=== PATIENT | male | born 1990 | race Hispanic/Latino ===

== ENCOUNTER 2021-02-11 14:20 | Emergency (ER) | payer OTHER, SELFPAY ==
--- NOTE | ~2021-02-11 | CT_ITS ---
EXAMINATION: CT brain wo con INDICATION: Generalized headache COMPARISON: 04/03/2019 TECHNIQUE: Standard unenhanced head CT. The dose-length product (DLP) was 605.33 mGy-cm. The mA was a djusted according to patient size. Iterative reconstruction technique was employed. FINDINGS: There is no intracranial hemorrhage, acute infarction, or abnormal mass lesion. The ventric les are normal. There is no abnormal mass effect or midline shift. The walters-white matter differentiat ion is normal. The basal cisterns are patent. The orbits are normal. The paranasal sinuses, mastoids and calvarium are normal. IMPRESSION: 1. No acute intracranial abnormality. Reviewed, dictated and finalized at location A.
--- NOTE | ~2021-02-11 | CT_ITS ---
EXAMINATION: CT abdomen pelvis w con INDICATION: Abdominal pain TECHNIQUE: Computed tomographic images of the abdomen and pelvis were obtained after the administrati on of 100 cc of Omnipaque 350 intravenous contrast. The dose-length product (DLP) was 347.26 mGy-cm. Automated exposure control and iterative reconstruction technique were employed. COMPARISON: None available FINDINGS: Minimal dependent atelectasis is present in the lung bases. The heart size is normal. The l iver, spleen, pancreas, gallbladder, and adrenal glands are normal. The kidneys are unremarkable. No pathologically enlarged abdominal or pelvic lymph nodes are identified. There is no free intraperiton eal gas or evidence of bowel obstruction. The appendix is normal. The bladder is decompressed by Fole y catheter. There is wall thickening of the urinary bladder with surrounding fat stranding. IMPRESSION: 1. CT findings consistent with cystitis. Reviewed, dictated and finalized at location A.
[2021-02-11 14:33] VITALS: BP 103/94; PULSE 96; RESP 14; TEMP 36.7; O2SAT 97
[2021-02-11 15:11] LABS: Basophils Absolute Auto 0.1 K/mm3 (0.0-0.1); Basophils Percent Auto 0.3 % (0.2-1.2); Eosinophils Absolute Auto 0.1 K/mm3 (0-0.3); Eosinophils Percent Auto 0.4 % (0-4.4); Hematocrit 42.7 % (42.0-52.0); Hemoglobin 14.8 g/dL (14.0-18.0); Immature Granulocyte Absolute 0.12 K/mm3 (0.00-0.031); Immature Granulocyte Percent A 0.6 % (0-0.5); Lymphocytes Absolute Auto 1.38 K/mm3 (0.9-3.2); Lymphocytes Percent Auto 6.8 % (18.3-44.2); Mean Corpuscular HGB Conc 34.7 g/dl (32-36); Mean Corpuscular Hemoglobin 30.6 pg (26-34); Mean Corpuscular Volume 88.4 fl (80-100); Mean Platelet Volume 10.6 fl (7.4-10.4); Monocytes Absolute Auto 1.1 K/mm3 (0.1-0.6); Monocytes Percent Auto 5.6 % (2.6-8.5); Neutrophils Absolute Auto 17.5 K/mm3 (1.3-6.7); Neutrophils Percent Auto 86.3 % (45.5-73.1); Platelet Count Result 238 k/mm3 (150-375); Red Blood Count 4.83 M/mm3 (4.6-6.20); Red Cell Distribution Width 13.1 % (11.5-14.5); White Blood Count 20.3 K/mm3 (4.5-10.0)
[2021-02-11 15:21] LABS: Anion Gap 12 mmol/L (8-16); Blood Urea Nitrogen 14 mg/dL (9-20); Calcium 9.4 mg/dL (8.4-10.2); Carbon Dioxide 24 mmol/L (22-30); Chloride 104 mmol/L (98-107); Creatine Kinase 60 U/L (55-170); Estimated CRCL calculation 193 ml/min; Estimated Glomerular Filt Rate > 60; Glucose 107 mg/dL (65-110); Potassium 3.7 mmol/L (3.4-5.0); Sodium 140 mmol/L (137-145)
[2021-02-11] MEDS: SODIUM CHLORIDE 0.9% IV 1,000 ML 999 ML IV CONT (15:57)
[2021-02-11 15:59] VITALS: BP 100/58; PULSE 78; RESP 12; O2SAT 98
[2021-02-11 16:00] VITALS: BP 113/89; PULSE 80; RESP 14; O2SAT 97
[2021-02-11 16:03] LABS: Add Urine Microscopic? YES; Appearance Urine Clear (Clear); Bilirubin Urine Negative (Negative); Blood Urine 3+ (Negative); Color Urine Yellow (Yellow); Glucose Urine UA Negative (Negative); Ketones Urine Negative (Negative); Leukocyte Esterase Ur 2+ LEU/UL (Negative); Nitrate Urine Negative (Negative); Protein Urine 1+ mg/dL (Negative); RBC Urine 51-75 /hpf (0-2); Specific Grav Ur 1.008 (1.001-1.035); Urobilinogen Urine Negative mg/dL (<2.0); WBC Urine 31-50 /hpf
--- NOTE | 2021-02-11 16:09 | ECG_ITS ---
Measurements Intervals [place] Rate: 86 P: 69 OK: 177 QRS: 9 QRSD: 90 T: 58 QT: 321 QTc: 384 Interpretive Statements SINUS RHYTHM BASELINE ARTIFACT- I, II, III, AVR, AVL, AVF, V1-V6 NORMAL ECG Electronically Signed On 02-11-2021 17:44:02 CDT by Juanito Morales D.O.
[2021-02-11] MEDS: LACTATED RINGERS 2,100 ML/1,000 ML BAG 999 ML IV CONT (16:27)
[2021-02-11 16:50] LABS: Lipase 18 U/L (23-300)
[2021-02-11 16:51] LABS: Lactic Acid Reflex 0.8 mmol/L (0.7-2.1)
[2021-02-11 16:53] LABS: CRP 2.1 mg/dL (<1.0)
[2021-02-11 16:56] LABS: INR 1.1; Prothrombin Time 14.3 Seconds (11.1-14.7)
[2021-02-11 16:57] LABS: Partial Thromboplastin Time 29.3 SECONDS (22.3-36.8)
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
[2021-02-11 17:50] VITALS: BP 105/56; PULSE 98; RESP 13; O2SAT 97
[2021-02-11 18:15] VITALS: BP 106/51; PULSE 98; RESP 12; O2SAT 98
--- NOTE | 2021-02-11 18:28 | PC.NURSE ---
2L of IVFs given, 1 bag of NS and 1 bag of LR. ERP cancelled the last additional 1100ml of LR.
[2021-02-11 19:17] VITALS: BP 109/59; PULSE 93; RESP 12; O2SAT 98
--- NOTE | 2021-02-12 15:52 | PC.NURSE ---
tea and [employer] supervisor notified of positive blood cultures for this patient but lab was unable to locate a primary doctor in chart. I attempted to look up contact information but no phone number is listed for the patient. Only [facility] main number. Patient was not notified of positive blood cultures due to lack of contact information.
== END 2021-02-11 19:29 ==
PROVIDERS: Emergency Provider Emergency Medicine
DX: N39.0 Urinary tract infection, site not specified (principal); R51.9 Headache, unspecified; G82.20 Paraplegia, unspecified; S14.105S Unspecified injury at C5 level of cervical spinal cord, sequela; X58.XXXS Exposure to other specified factors, sequela
CPT/HCPCS: 36415; 51702; 70450; 74177; 80048; 81001; 82550; 83605; 83690; 85025; 85610; 85730; 86140; 87040; 87077; 87086; 87088; 87186; 93005; 96361; 96365; 99284; J0696; J7030; J7120; Q9967

== ENCOUNTER 2021-12-18 22:38 | Inpatient (IN) | payer OTHER, SELFPAY ==
--- NOTE | ~2021-12-18 | CT_ITS ---
EXAMINATION: CT abdomen pelvis w con DATE: 12/18/2021 23:52 INDICATION: Abdominal pain. TECHNIQUE: Computed tomography (CT) of the abdomen and pelvis was performed with 100 mL Omnipaque 350 intravenous contrast. Automated exposure control and iterative reconstruction technique were employe d. The dose-length product was 378.18 mGy-cm. COMPARISON: CT abdomen and pelvis 02/11/2021 FINDINGS: The visualized portions of the lung bases demonstrate minimal atelectasis on the left. No p leural effusion. The heart size is normal. No pericardial effusion. The liver demonstrates hypertroph y of left lateral segment and surface nodularity, consistent with cirrhosis. The gallbladder, spleen, pancreas, adrenal glands, and kidneys are normal. The bladder is distended. There is a large volume of stool in the colon. There are no dilated loops of bowel. The appendix is normal. There are no path ologically enlarged lymph nodes. There is no free intraperitoneal fluid. There is chronic fat strandi ng around the sacrococcygeal region with worsened erosions of bone. There is a mass with 1.6 x 1.4 x 1.5 cm central relative hypoattenuation in this area, which may be phlegmon or early abscess. There is mild thoracolumbar spondylosis. IMPRESSION: 1. Sacrococcygeal osteomyelitis with phlegmon versus small early abscess. 2. Large volume of stool in the colon. 3. Distended bladder. 4. Cirrhosis of liver. Reviewed, dictated and finalized at location A.
--- NOTE | ~2021-12-18 | MR_ITS ---
EXAMINATION: MR pelvis wo/w con DATE: 12/21/2021 07:20 INDICATION: Sacral osteomyelitis. TECHNIQUE: Magnetic resonance imaging (MRI) of the pelvis was performed without and with 15 mL MultiH ance intravenous contrast. COMPARISON: CT abdomen and pelvis 12/18/2021, 02/11/21 FINDINGS: There are no dilated loops of bowel. The bladder is compressed by a Fitzpatrick catheter. There is trace pe lvic ascites. There are erosions of S5 segment of the sacrum. There is a small fragment of heterotopi c ossification anterior to the distal sacrum that may be displaced coccyx. There is fat stranding gabino und the distal sacrum with 1.7 x 0.7 x 1.0 cm rim-enhancing fluid collection, consistent with abscess . IMPRESSION: 1. Chronic sacrococcygeal osteomyelitis with small abscess, worsened from 02/11/21. Reviewed, dictated and finalized at location A. IMPRESSION: 1. Chronic sacrococcygeal osteomyelitis with small abscess, worsened from .
[2021-12-18 22:44] VITALS: BP 112/65; PULSE 94; RESP 23; O2SAT 96
[2021-12-18 22:50] VITALS: PULSE 96; RESP 16; O2SAT 95
[2021-12-18 23:08] LABS: Basophils Absolute Auto 0.1 K/mm3 (0.0-0.1); Basophils Percent Auto 0.6 % (0.2-1.2); Eosinophils Percent Auto 0.1 % (0-4.4); Hematocrit 42.8 % (42.0-52.0); Immature Granulocyte Absolute 0.04 K/mm3 (0.00-0.031); Immature Granulocyte Percent A 0.5 % (0-0.5); Lymphocytes Absolute Auto 1.14 K/mm3 (0.9-3.2); Lymphocytes Percent Auto 14.2 % (18.3-44.2); Mean Corpuscular Hemoglobin 29.6 pg (26-34); Mean Corpuscular Volume 84.4 fl (80-100); Mean Platelet Volume 11.5 fl (7.4-10.4); Monocytes Absolute Auto 0.5 K/mm3 (0.1-0.6); Monocytes Percent Auto 6.6 % (2.6-8.5); Neutrophils Absolute Auto 6.3 K/mm3 (1.3-6.7); Platelet Count Result 225 k/mm3 (150-375); Red Blood Count 5.07 M/mm3 (4.6-6.20); Red Cell Distribution Width 14.6 % (11.5-14.5)
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
[2021-12-18] MEDS: HYDROmorphone HCL INJ (*CRX) 1 MG/ML SYR 0.5 MG IV PUSH (23:15)
[2021-12-18] MEDS: SODIUM CHLORIDE 0.9% IV 1,000 ML 999 ML IV CONT (23:15)
[2021-12-18 23:17] LABS: Lactic Acid Reflex 0.9 mmol/L (0.7-2.0)
[2021-12-18 23:23] VITALS: O2SAT 97
[2021-12-18 23:25] LABS: Alanine Aminotransferase 9 U/L (6-50); Albumin Level 4.6 g/dL (3.5-5.1); Alkaline Phosphatase 120 U/L (38-126); Aspartate Amino Transferase 20 U/L (17-59); Blood Urea Nitrogen 10 mg/dL (9-20); Carbon Dioxide < 5 mmol/L (22-30); Chloride 100 mmol/L (98-107); Estimated Glomerular Filt Rate > 60; Glucose 438 mg/dL (65-110); Lipase 169 U/L (23-300); Potassium 2.5 mmol/L (3.4-5.0); Sodium 131 mmol/L (137-145)
[2021-12-18 23:30] VITALS: O2SAT 97
--- NOTE | 2021-12-18 23:44 | PC.NURSE ---
called Estephanie in lab @1171 to add on Phos MG -NC
[2021-12-18 23:50] VITALS: BP 102/73; PULSE 95; RESP 21; TEMP 36.4; O2SAT 100
[2021-12-19] VITALS (23 sets, daily range): BP systolic 92–125; BP diastolic 54–99; PULSE 85–107; RESP 12–28; TEMP 36–36.9; O2SAT 96–99; BMI 27.3
[2021-12-19] MEDS: KCL 20 MEQ/SW 100 ML 100 ML 50 MEQ IVPB (00:04)
[2021-12-19 00:07] LABS: Magnesium 2.2 mg/dL (1.6-2.3); Phosphorus 2.3 mg/dL (2.5-4.5)
[2021-12-19] MEDS: POTASSIUM CHLORIDE 20 MEQ PACKET (FOR LIQUID) 40 MEQ PO ×2 (00:14→02:58)
[2021-12-19 01:27] LABS: Appearance Urine Cloudy (Clear); Bilirubin Urine Negative (Negative); Blood Urine 1+ (Negative); Glucose Urine UA 2+ mg/dL (Negative); Ketones Urine 4+ mg/dL (Negative); Leukocyte Esterase Ur Negative LEU/UL (Negative); Nitrate Urine Negative (Negative); Protein Urine 1+ mg/dL (Negative); Specific Grav Ur 1.015 (1.001-1.035); Urobilinogen Urine 0.2 mg/dL (<2.0); pH Urine 5.5 (5.0-9.0)
[2021-12-19 01:31] LABS: Add Urine Microscopic? YES; Color Urine Light Yellow (Yellow)
[2021-12-19 01:33] LABS: Calcium Oxalate Crystals Urine Present /hpf; RBC Urine >75 /hpf (0-2)
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
--- NOTE | 2021-12-19 02:30 | ECG_ITS ---
Measurements Intervals [place] Rate: 91 P: 48 IA: 147 QRS: -9 QRSD: 90 T: 11 QT: 350 QTc: 432 Interpretive Statements SINUS RHYTHM NONSPECIFIC ST CHANGES, NEW COMPARED TO THE PRIOR TRACING. COMPARED TO ECG 02/11/2021 16:37:07 ST (T WAVE) DEVIATION NOW PRESENT Electronically Signed On 12-19-2021 16:29:33 CDT by Chula Escalante M.D.
[2021-12-19] MEDS: SODIUM CHLORIDE 0.9% IV 1,000 ML 150 ML IV CONT (02:58)
[2021-12-19] MEDS: SODIUM CHLORIDE 0.9% IV 1,000 ML 999 ML IV CONT ×3 (03:14→12:24)
--- NOTE | 2021-12-19 04:12 | ADMGEN ---
This patient, Raman Mccall, was admitted to Intensive Care Unit-7 on 12/19/21 at 0400. Patient/family oriented to hospital policies and general routines including ID bracelet, bed and alarms, visiting hours, pain management, procedures, bathroom and other care routines, personal items, smoking policy, room service/diet, and visiting hours. Information on how to activate the Rapid Response Team has been discussed. Patient/Family are encouraged to report perceived risks to care and to ask questions if they do not understand what they are told or what they should do.
[2021-12-19 04:23] LABS: Glucose Point of Care 366 mg/dl (65-105)
[2021-12-19 04:35] LABS: Blood Urea Nitrogen 7 mg/dL (9-20); Calcium 8.5 mg/dL (8.4-10.2); Carbon Dioxide < 5 mmol/L (22-30); Chloride 109 mmol/L (98-107); Estimated CRCL calculation 146 ml/min; Estimated Glomerular Filt Rate > 60; Glucose 357 mg/dL (65-110); Potassium 3.6 mmol/L (3.4-5.0); Sodium 137 mmol/L (137-145)
[2021-12-19] MEDS: MAGNESIUM HYDROXIDE SUSP 30 ML UDC PO (04:35)
[2021-12-19 04:36] LABS: Prothrombin Time 22.4 Seconds (11.1-14.7)
[2021-12-19 04:41] LABS: Hemoglobin A1C 11.5 % (<5.7)
[2021-12-19 05:22] LABS: Beta-Hydroxybutyrate/Acetoacetate 7.62 mmol/L (0.02-0.27)
[2021-12-19] MEDS: INSULIN HUMAN REGULAR (*BKC) 100 UNITS in SODIUM CHLORIDE 0.9% IV 99 ML 5.02 UNITS IV CONT (06:15)
[2021-12-19 06:22] LABS: Glucose Point of Care 311 mg/dl (65-105)
[2021-12-19 07:19] LABS: Glucose Point of Care 277 mg/dl (65-105)
[2021-12-19 08:01] LABS: Anion Gap 19 mmol/L (8-16); Blood Urea Nitrogen 6 mg/dL (9-20); Calcium 8.2 mg/dL (8.4-10.2); Carbon Dioxide 8 mmol/L (22-30); Chloride 112 mmol/L (98-107); Estimated CRCL calculation 178 ml/min; Estimated Glomerular Filt Rate > 60; Glucose 256 mg/dL (65-110); Potassium 2.8 mmol/L (3.4-5.0); Sodium 139 mmol/L (137-145)
[2021-12-19] MEDS: BISACODYL 10 MG SUPPOSITORY RECTAL (08:23)
[2021-12-19] MEDS: POTASSIUM CHLORIDE INJ 40 MEQ in SODIUM CHLORIDE 0.9% IV 500 ML 130 MEQ IVPB ×2 (08:23→17:41)
[2021-12-19] MEDS: KCL 20 MEQ/D5/0.45% SOD CHL 1,000 ML 150 ML IV CONT ×3 (08:23→22:19)
[2021-12-19] MEDS: ONDANSETRON INJ 4 MG/2 ML VIAL IV PUSH (08:24)
[2021-12-19 08:31] LABS: Glucose Point of Care 207 mg/dl (65-105)
[2021-12-19 09:15] LABS: Glucose Point of Care 198 mg/dl (65-105)
--- NOTE | 2021-12-19 09:20 | PM.IMPN ---
Progress Note: A&P Assessment and Plan (1) DKA (diabetic ketoacidosis): Code(s): E11.10 - Type 2 diabetes mellitus with ketoacidosis without coma Status: Acute Assessment and Plan: Patient presents with n/v and abdominal pain. Glucose 438 with serum bicarb <5 (AG 26). Patient has new onset diabetes mellitus. A1c 11.5. Patient received 3 L of isotonic fluids in the ER. Patient was started on DKA protocol and admitted to ICU. Appreciate collections attorney input. Discussed. (2) Acute hypokalemia: Code(s): E87.6 - Hypokalemia Status: Acute Assessment and Plan: Potassium 2.5 on admission. Not on diuretics on admission. Potassium was replaced with repeat showing normal potassium level. With treatment of the DKA, potassium has dropped again with repeat replacement ordered. Mag level normal. Follow and replace as needed. (3) Constipation due to neurogenic bowel: Code(s): K59.00 - Constipation, unspecified; K59.2 - Neurogenic bowel, not elsewhere classified Status: Acute Assessment and Plan: Patient started on Colace and daily Dulcolax. He did receive an enema in the ER. He is having BMs and abd soft. Continue current bowel regiment and monitor (4) Urinary retention: Code(s): R33.9 - Retention of urine, unspecified Status: Acute Assessment and Plan: Patient had an episode of hematuria but urine clear now. UA does showing 1+ blood with >[address] scan showing urine retnetion so Fitzpatrick catheter was placed. Patient will benefit from intermittent straight catheterization after discharge. A portion of the patient's urinary retention could be related to his constipation as well. Follow up on UCx and BCx results. (5) Acute hyponatremia: Code(s): E87.1 - Hypo-osmolality and hyponatremia Status: Acute Assessment and Plan: Na 131 on admission. [place] related to Pseudo hyponatremia due to hyperglycemia. Na normal now. (6) Abnormal computed tomography of abdomen and pelvis: Code(s): R93.5 - Abnormal findings on diagnostic imaging of other abdominal regions, including retroperitoneum Status: Acute Assessment and Plan: Preliminary CT reading suggested possible proctitis. Official reading showing sacrococcygeal osteomyelitis with phlegmon versus small early abscess, large volume stool, distended bladder and cirrhosis. No mention of ascites. The constipation and urine retention is being addressed as mentioned above. Regarding the possible osteomyelitis, patient has a normal white count and no fevers. Does mention having chills however. Nothing concerning noted on clinical exam. Cultures obtained. Hold off on antibiotics at this time with plans for MRI of this area once able. Regarding the cirrhosis, this is documented the past medical history felt related to alcohol. LFTs are normal. INR is elevated related to the Coumadin. Overall was felt that his cirrhosis is well compensated. (7) Quadriplegia, C5-C7 incomplete: Code(s): G82.54 - Quadriplegia, C5-C7 incomplete Status: Acute Assessment and Plan: Chronic and stable. Some good upper body strength and function. Will continue home Neurontin, diazepam and Skelaxin. Plan DVT Prophylaxis: Coumadin Code status: Full Diet: NPO Subjective Date/time seen: 12/19/21 09:20 Interval history: 31yo male with quadriplegia here for abdominal pain, constipation and hematuria. Patient denies chest pain. He continues to have abdominal pain. He did have a large bowel movement last night. Fitzpatrick catheter secured for urine retention. Urine is clear. Patient is on anticoagulation chronically for unclear reasons. He has had decreased appetite recently with nausea. He has no history of diabetes. He has had polydipsia recently. Exam Narrative: AF 98.2 99/60 88 15 97% ra Gen - NARD lying semi-recumbent in bed Chest - lungs clear anteriorly and in
[2021-12-19] MEDS: ACETAMINOPHEN 325 MG TABLET 650 MG PO (09:23)
[2021-12-19] MEDS: GABAPENTIN 400 MG CAPSULE PO ×3 (09:23→16:53)
[2021-12-19] MEDS: DOCUSATE SODIUM 100 MG CAPSULE PO ×2 (09:23→21:41)
[2021-12-19] MEDS: methocarbamoL 750 MG TABLET PO ×2 (09:23→21:41)
[2021-12-19] MEDS: DULoxetine HCL 60 MG CAPSULE.DR PO (09:23)
[2021-12-19 10:18] LABS: Glucose Point of Care 233 mg/dl (65-105)
[2021-12-19 11:14] LABS: Glucose Point of Care 207 mg/dl (65-105)
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
--- NOTE | 2021-12-19 11:39 | PCFNICU ---
ICU Rounding Note: Pt current nutrition is Clear Liquids. Last recorded weight is 70.2 kg Bowel Motility:No BM reported. Labs Reviewed:Glu 256,K 2.8,BUN 6, Cr 0.4 Meds Noted:Miralax, Colace, Cymbalta,Zofran Skin:WNL Additional Notes: DKA consult. Patient lives at [place]. HbA1c 11.5%, tolerating clear liquid diet. Recommend advancing diet as tolerated to Diabetic Consistent Carb diet. Following daily in ICU rounds.
[2021-12-19 12:22] LABS: Glucose Point of Care 218 mg/dl (65-105)
[2021-12-19 13:30] LABS: Glucose Point of Care 206 mg/dl (65-105)
[2021-12-19] MEDS: polyethylene glycoL 3350 17 GM POWD.PACK PO (13:30)
[2021-12-19] MEDS: EUCERIN CREAM 120 GM JAR 1 APPLIC TOPICAL (13:32)
[2021-12-19 13:37] LABS: Anion Gap 13 mmol/L (8-16); Blood Urea Nitrogen 3 mg/dL (9-20); Calcium 7.9 mg/dL (8.4-10.2); Carbon Dioxide 13 mmol/L (22-30); Chloride 110 mmol/L (98-107); Estimated CRCL calculation 227 ml/min; Estimated Glomerular Filt Rate > 60; Glucose 199 mg/dL (65-110); Potassium 2.6 mmol/L (3.4-5.0); Sodium 136 mmol/L (137-145)
[2021-12-19] MEDS: POTASSIUM CHLORIDE 20 MEQ TABLET 80 MEQ PO (14:00)
[2021-12-19 14:30] LABS: Glucose Point of Care 310 mg/dl (65-105)
[2021-12-19] MEDS: INSULIN HUMAN REGULAR (*BKC) 100 UNITS in SODIUM CHLORIDE 0.9% IV 99 ML 25 UNITS IV CONT (15:04)
[2021-12-19 15:26] LABS: Glucose Point of Care 311 mg/dl (65-105)
[2021-12-19 16:26] LABS: Glucose Point of Care 340 mg/dl (65-105)
[2021-12-19 16:34] LABS: Anion Gap 12 mmol/L (8-16); Blood Urea Nitrogen 2 mg/dL (9-20); Carbon Dioxide 14 mmol/L (22-30); Chloride 106 mmol/L (98-107); Estimated CRCL calculation 227 ml/min; Estimated Glomerular Filt Rate > 60; Glucose 306 mg/dL (65-110); Potassium 2.6 mmol/L (3.4-5.0); Sodium 132 mmol/L (137-145)
[2021-12-19] MEDS: WARFARIN (*PBKC) 2.5 MG TABLET PO (16:53)
[2021-12-19] MEDS: WARFARIN (*PBKC) 4 MG TABLET PO (16:53)
[2021-12-19 17:25] LABS: Magnesium 1.7 mg/dL (1.6-2.3)
[2021-12-19 17:28] LABS: Glucose Point of Care 221 mg/dl (65-105)
[2021-12-19 18:26] LABS: Glucose Point of Care 220 mg/dl (65-105)
[2021-12-19 19:26] LABS: Glucose Point of Care 207 mg/dl (65-105)
[2021-12-19] MEDS: INSULIN HUMAN REGULAR (*BKC) 100 UNITS in SODIUM CHLORIDE 0.9% IV 99 ML 22.1 UNITS IV CONT (19:32)
[2021-12-19 20:44] LABS: Glucose Point of Care 156 mg/dl (65-105)
[2021-12-19 21:02] LABS: Anion Gap 9 mmol/L (8-16); Calcium 8.7 mg/dL (8.4-10.2); Carbon Dioxide 17 mmol/L (22-30); Chloride 107 mmol/L (98-107); Estimated CRCL calculation 178 ml/min; Estimated Glomerular Filt Rate > 60; Glucose 164 mg/dL (65-110); Sodium 133 mmol/L (137-145)
[2021-12-19] MEDS: diazePAM (*CRX) 2 MG TABLET PO (21:42)
[2021-12-19 21:46] LABS: Glucose Point of Care 131 mg/dl (65-105)
[2021-12-19 21:49] LABS: Blood Urea Nitrogen < 2 mg/dL (9-20)
[2021-12-19] MEDS: TAMSULOSIN HCL 0.4 MG CAPSULE PO (22:34)
[2021-12-19 22:38] LABS: Glucose Point of Care 114 mg/dl (65-105)
[2021-12-19] MEDS: INSULIN GLARGINE (*BKC) 100 UNITS/ML 40 UNITS SUB-Q (23:12)
[2021-12-20] VITALS (12 sets, daily range): BP systolic 91–145; BP diastolic 48–75; PULSE 79–109; RESP 10–20; TEMP 36.4–37.4; O2SAT 97–100; BMI 28.8
[2021-12-20] MEDS: INSULIN ASPART (*BKC) 100 UNITS/ML SUB-Q ×3 (04:08→20:17)
[2021-12-20 04:09] LABS: Glucose Point of Care 217 mg/dl (65-105)
[2021-12-20 04:40] LABS: Basophils Absolute Auto 0.1 K/mm3 (0.0-0.1); Basophils Percent Auto 0.8 % (0.2-1.2); Eosinophils Absolute Auto 0.1 K/mm3 (0-0.3); Eosinophils Percent Auto 1.6 % (0-4.4); Hematocrit 37.9 % (42.0-52.0); Hemoglobin 13.5 g/dL (14.0-18.0); Immature Granulocyte Absolute 0.03 K/mm3 (0.00-0.031); Immature Granulocyte Percent A 0.4 % (0-0.5); Lymphocytes Absolute Auto 1.94 K/mm3 (0.9-3.2); Lymphocytes Percent Auto 25.6 % (18.3-44.2); Mean Corpuscular HGB Conc 35.6 g/dl (32-36); Mean Corpuscular Hemoglobin 29.8 pg (26-34); Mean Corpuscular Volume 83.7 fl (80-100); Mean Platelet Volume 11.2 fl (7.4-10.4); Monocytes Absolute Auto 0.8 K/mm3 (0.1-0.6); Neutrophils Absolute Auto 4.7 K/mm3 (1.3-6.7); Neutrophils Percent Auto 61.6 % (45.5-73.1); Platelet Count Result 193 k/mm3 (150-375); Red Blood Count 4.53 M/mm3 (4.6-6.20); Red Cell Distribution Width 14.5 % (11.5-14.5); White Blood Count 7.6 K/mm3 (4.5-10.0)
[2021-12-20 04:50] LABS: INR 1.8; Prothrombin Time 20.2 Seconds (11.1-14.7)
[2021-12-20 04:51] LABS: Alanine Aminotransferase 7 U/L (6-50); Albumin Level 3.2 g/dL (3.5-5.1); Alkaline Phosphatase 85 U/L (38-126); Anion Gap 11 mmol/L (8-16); Aspartate Amino Transferase 13 U/L (17-59); Blood Urea Nitrogen 2 mg/dL (9-20); Calcium 8.8 mg/dL (8.4-10.2); Carbon Dioxide 17 mmol/L (22-30); Chloride 106 mmol/L (98-107); Estimated CRCL calculation 178 ml/min; Estimated Glomerular Filt Rate > 60; Glucose 216 mg/dL (65-110); Lactic Acid Reflex 0.7 mmol/L (0.7-2.0); Magnesium 1.9 mg/dL (1.6-2.3); Phosphorus 1.3 mg/dL (2.5-4.5); Potassium 3.1 mmol/L (3.4-5.0); Sodium 134 mmol/L (137-145)
[2021-12-20 07:37] LABS: Glucose Point of Care 158 mg/dl (65-105)
[2021-12-20] MEDS: POTASSIUM CHLORIDE 20 MEQ TABLET 40 MEQ PO (09:04)
[2021-12-20] MEDS: EUCERIN CREAM 120 GM JAR 1 APPLIC TOPICAL (09:05)
[2021-12-20] MEDS: DOCUSATE SODIUM 100 MG CAPSULE PO ×2 (09:06→20:18)
[2021-12-20] MEDS: GABAPENTIN 400 MG CAPSULE PO ×3 (09:06→16:59)
[2021-12-20] MEDS: DULoxetine HCL 60 MG CAPSULE.DR PO (09:06)
[2021-12-20] MEDS: methocarbamoL 750 MG TABLET PO ×2 (09:06→20:18)
--- NOTE | 2021-12-20 09:06 | WPDINTPN ---
Progress Note: A&P Assessment and Plan (1) DKA (diabetic ketoacidosis): Code(s): E11.10 - Type 2 diabetes mellitus with ketoacidosis without coma Status: Acute Assessment and Plan: Patient presented with abdominal pain, nausea, vomiting. Blood sugars were > 400 along with anion gap metabolic acidosis, low serum bicarb. Likely new onset diabetes -patient was adequately fluid-resuscitated Anion gap has closed and patient is transition to subcutaneous insulin. Continue Lantus and sliding scale insulin Diet advanced to diabetic diet Replace low phosphate and potassium (2) Acute hypokalemia: Code(s): E87.6 - Hypokalemia Status: Acute Assessment and Plan: Replace low potassium and phosphate (3) Constipation due to neurogenic bowel: Code(s): K59.00 - Constipation, unspecified; K59.2 - Neurogenic bowel, not elsewhere classified Status: Acute Assessment and Plan: Continue Colace, Dulcolax suppository Continue MiraLax Patient did get enema had a bowel movement (4) Urinary retention: Code(s): R33.9 - Retention of urine, unspecified Status: Acute Assessment and Plan: Patient with neurogenic bladder, with urinary retention. Patient did have 800 mL in urine and a Fitzpatrick was inserted. UA was negative for any evidence of infection and cultures pending (5) Abnormal computed tomography of abdomen and pelvis: Code(s): R93.5 - Abnormal findings on diagnostic imaging of other abdominal regions, including retroperitoneum Status: Acute Assessment and Plan: CT scan of the abdomen and pelvis suggested possible proctitis, official reading showed sacrococcygeal osteomyelitis with phlegmon but has small early abscess, large volume stool, distended bladder and cirrhosis no mention of ascites. Constipation and urinary retention was addressed as above -patient is afebrile, normal white count. Blood cultures obtained and are pending -will hold antibiotics at this time -MRI plan (6) Quadriplegia, C5-C7 incomplete: Code(s): G82.54 - Quadriplegia, C5-C7 incomplete Status: Acute Assessment and Plan: Chronic and stable, patient on Coumadin for possible DVT prophylaxis INR is therapeutic will continue to monitor Additional Plan DVT prophylaxis: Coumadin Nutrition: Diabetic diet Code status: Full code Incentive spirometry Transfer out of ICU today This dictation may have been done utilizing a voice recognition system. Attempts have been made to correct errors. However, there may be uncorrected grammatical, spelling, and recognition errors present. Subjective Date/time seen: 12/20/21 09:06 Overnight events reviewed. Afebrile Patient states that he is feeling much better and denies any nausea vomiting abdominal pain at this time. He states that he feels that his abdominal is still upset but is much better than before. He denies any fever shortness of breath or cough. Review of system was positive for paraplegia which is chronic. All other systems were reviewed and were negative Patient was transitioned from insulin infusion to subcutaneous insulin overnight and was given subcutaneous Lantus. He also tolerated meal for dinner. Urine output is adequate Other Vitals acceptable Review of Systems Review of Systems: All systems reviewed & are unremarkable except as noted in HPI and below Exam Narrative: General: Pleasant gentleman in no acute distress HEENT: Pupils equal and reactive, sclerae is clear Neck: Supple Respiratory: Clear to auscultation bilaterally, no wheezing Cardiac: Regular rate and rhythm, S1-S2 is normal Abdomen: Soft, nontender, distended, normoactive bowel sounds Extremities: Bilateral lower extremity edema, palpable pedal pulses Neuro: Alert, awake, oriented, paraplegia, able to move bilateral upper extremities spontaneously, he does have has sensation on the legs but is abnormal Skin: Sacral and examined shows sm
[2021-12-20] MEDS: polyethylene glycoL 3350 17 GM POWD.PACK PO (09:13)
--- NOTE | 2021-12-20 10:00 | PC.NURSE ---
This patient, Raman Mccall, was transferred to [facility] on 12/20/21 at 1000. Personal belongings sent with patient. Report given to Lakeisha. Appropriate documentation sent with patient.
--- NOTE | 2021-12-20 10:18 | PC.NURSE ---
pt transferred in to room 330 via bed, oriented to new room and environment, reviewed plan of care
--- NOTE | 2021-12-20 11:19 | PCDIET ---
Patient transferred from ICU. Diet order has advanced to a diabetic diet. He states to tolerating breakfast today. He does not eat cheese. Diet office is aware. Patient instruction attached. No further nutritional interventions.
[2021-12-20 11:37] LABS: Glucose Point of Care 87 mg/dl (65-105)
--- NOTE | 2021-12-20 16:45 | PM.IMPN ---
Progress Note: A&P Assessment and Plan (1) DKA (diabetic ketoacidosis): Code(s): E11.10 - Type 2 diabetes mellitus with ketoacidosis without coma Status: Acute Assessment and Plan: Patient presented with abdominal pain, nausea, vomiting. Blood sugars were > 400 along with anion gap metabolic acidosis, low serum bicarb. Likely new onset diabetes -unclear etiology at this time. Patient does have prior history of significant alcohol use, however pancreas on CT appears normal. Patient does not have the typical body habitus for type 2 diabetes. Consider obtaining islet cell antibody and C-peptide in the future. Hemoglobin A1c above 11 -patient was adequately fluid-resuscitated Anion gap has closed and patient is transition to subcutaneous insulin. Was given lantus 40 U last night 12/19, decreased to lantus 30 U for tonight. On SSI. Diet advanced to diabetic diet Replace low phosphate and potassium (2) Acute hypokalemia: Code(s): E87.6 - Hypokalemia Status: Acute Assessment and Plan: Replace low potassium and phosphate (3) Constipation due to neurogenic bowel: Code(s): K59.00 - Constipation, unspecified; K59.2 - Neurogenic bowel, not elsewhere classified Status: Acute Assessment and Plan: Continue Colace, Dulcolax suppository Continue MiraLax Patient did get enema had a bowel movement (4) Urinary retention: Code(s): R33.9 - Retention of urine, unspecified Status: Acute Assessment and Plan: Patient with neurogenic bladder, with urinary retention. Patient did have 800 mL in urine and a Fitzpatrick was inserted. UA was negative for any evidence of infection and cultures pending (5) Abnormal computed tomography of abdomen and pelvis: Code(s): R93.5 - Abnormal findings on diagnostic imaging of other abdominal regions, including retroperitoneum Status: Acute Assessment and Plan: CT scan of the abdomen and pelvis suggested possible proctitis, official reading showed sacrococcygeal osteomyelitis with phlegmon but has small early abscess, large volume stool, distended bladder and cirrhosis no mention of ascites. Constipation and urinary retention was addressed as above -patient is afebrile, normal white count. Blood cultures obtained and are pending -will hold antibiotics at this time -skin assessment performed, small stage II pressure ulcer noted on left gluteal fold, however nothing noted on sacrum. -given CT findings, will order MRI w and wo contrast (6) Quadriplegia, C5-C7 incomplete: Code(s): G82.54 - Quadriplegia, C5-C7 incomplete Status: Acute Assessment and Plan: Chronic and stable, patient on Coumadin for possible DVT prophylaxis INR is therapeutic will continue to monitor (7) Anticoagulant long-term use: Code(s): Z79.01 - buttermaker continuous churn (current) use of anticoagulants Status: Acute Assessment and Plan: Unclear reason as to why patient is on Coumadin at this time. Continue for now and check daily PT INR Additional Plan DVT prophylaxis: Coumadin Nutrition: Diabetic diet Code status: Full code Subjective Date/time seen: 12/20/21 16:45 Greater than 30 minutes spent reviewing chart, evaluating, treating, counseling patient No new events, patient transferred from the ICU after discontinuing insulin drip and transitioning to subq insulin. Patient with significant urine output, are nurse reports bowel movement Review of Systems Review of Systems: Ten point review systems obtained, negative unless otherwise specified per subjective Exam Const: General: comfortable and no acute distress Eyes: General: appearance normal, both eyes and all related structures Pupils: Equal, round and reactive pupils present Resp: Effort & Inspection: normal respiratory effort Auscultation: clear to auscultation bilaterally Cardio: Rate: regular rate Rhythm: regular rhythm GI: Auscultation: normal bowel sounds Ot
[2021-12-20 16:54] LABS: Glucose Point of Care 267 mg/dl (65-105)
[2021-12-20] MEDS: WARFARIN (*PBKC) 2.5 MG TABLET PO (16:59)
[2021-12-20] MEDS: WARFARIN (*PBKC) 4 MG TABLET PO (16:59)
[2021-12-20 18:46] LABS: Appearance Urine Slightly Cloudy (Clear); Bilirubin Urine Negative (Negative); Color Urine Yellow (Yellow); Glucose Urine UA 3+ mg/dL (Negative); Ketones Urine 1+ mg/dL (Negative); Leukocyte Esterase Ur 1+ LEU/UL (NEGATIVE); Nitrate Urine Negative (Negative); Protein Urine Negative (Negative); Specific Grav Ur 1.015 (1.001-1.035); Urobilinogen Urine 0.2 mg/dL (<2.0)
[2021-12-20 19:02] LABS: Add Urine Microscopic? YES; Blood Urine Trace-Intact (Negative); Mucus Urine Rare /lpf; RBC Urine >75 /hpf (0-2); WBC Urine 31-50 /hpf (0-3)
[2021-12-20 20:14] LABS: Glucose Point of Care 262 mg/dl (65-105)
[2021-12-20] MEDS: TAMSULOSIN HCL 0.4 MG CAPSULE PO (20:18)
[2021-12-20] MEDS: diazePAM (*CRX) 2 MG TABLET PO (20:18)
[2021-12-20] MEDS: INSULIN GLARGINE (*BKC) 100 UNITS/ML 30 UNITS SUB-Q (20:19)
[2021-12-20] MEDS: ACETAMINOPHEN 325 MG TABLET 650 MG PO (21:35)
[2021-12-21] VITALS (9 sets, daily range): BP systolic 105–115; BP diastolic 56–69; PULSE 83–106; RESP 16–18; TEMP 36.1–37.5; O2SAT 96–98
[2021-12-21 05:47] LABS: Glucose Point of Care 219 mg/dl (65-105)
--- NOTE | 2021-12-21 06:16 | PC.NURSE ---
Held pt's 0630 dose of NovoLog due to fast action of NovoLog and it's need to be given at mealtimes which are not until 0800. Will pass on to dayshift need to recheck blood sugar and give insulin with breakfast at 0800. At 0534 pt's POC glucose was 219.
[2021-12-21 07:46] LABS: Glucose Point of Care 234 mg/dl (65-105)
[2021-12-21] MEDS: INSULIN ASPART (*BKC) 100 UNITS/ML SUB-Q ×3 (08:07→17:03)
[2021-12-21] MEDS: GABAPENTIN 400 MG CAPSULE PO ×3 (08:08→17:03)
[2021-12-21] MEDS: DOCUSATE SODIUM 100 MG CAPSULE PO ×2 (08:08→20:50)
[2021-12-21] MEDS: methocarbamoL 750 MG TABLET PO ×2 (08:08→20:50)
[2021-12-21] MEDS: polyethylene glycoL 3350 17 GM POWD.PACK PO (08:09)
[2021-12-21] MEDS: EUCERIN CREAM 120 GM JAR 1 APPLIC TOPICAL (08:09)
[2021-12-21] MEDS: DULoxetine HCL 60 MG CAPSULE.DR PO (08:09)
[2021-12-21 08:30] LABS: Prothrombin Time 22.3 Seconds (11.1-14.7)
[2021-12-21 08:41] LABS: Glucose Point of Care 258 mg/dl (65-105)
--- NOTE | 2021-12-21 09:05 | PC.NURSE ---
L ear boil has popped ear tender to touch, wound consult ordered, informed MD Weathers.
--- NOTE | 2021-12-21 09:10 | PC.NURSE ---
bactroban tid ordered per MD Weathers.
[2021-12-21] MEDS: MUPIROCIN 2% OINT 22 GM TUBE 1 APPLIC TOPICAL ×3 (11:07→17:02)
[2021-12-21 11:31] LABS: Glucose Point of Care 268 mg/dl (65-105)
--- NOTE | 2021-12-21 15:11 | PC.NURSE ---
MRI pelvis shows Chronic sacrococcygeal osteomyelitis with small abscess, worsened from 02/11/21. Reported to MD Weathers, general surgery consulted MD Astudillo
--- NOTE | 2021-12-21 15:21 | PC.NURSE ---
called consult to MD Astudillo office, reported consult to Aurelia, Chronic sacrococcygeal osteomyelitis with small abscess, worsened from 02/11/21. consulted per MD Weathers.
[2021-12-21 16:36] LABS: Glucose Point of Care 245 mg/dl (65-105)
[2021-12-21] MEDS: WARFARIN (*PBKC) 2.5 MG TABLET PO (17:03)
[2021-12-21] MEDS: WARFARIN (*PBKC) 4 MG TABLET PO (17:03)
--- NOTE | 2021-12-21 17:27 | PCDIET ---
bilateral buttock wound photo taken this shift, wound consult ordered
--- NOTE | 2021-12-21 19:02 | PM.IMPN ---
Progress Note: A&P Assessment and Plan (1) DKA (diabetic ketoacidosis): (2) Acute hypokalemia: (3) Constipation due to neurogenic bowel: (4) Urinary retention: (5) Abnormal computed tomography of abdomen and pelvis: (6) Quadriplegia, C5-C7 incomplete: (7) Anticoagulant long-term use: (8) Decubitus skin ulcer: (9) Sacral osteomyelitis: (10) Abscess of sacrum: Plan 12/20/21 Patient presented with abdominal pain, nausea, vomiting. Blood sugars were > 400 along with anion gap metabolic acidosis, low serum bicarb. Likely new onset diabetes -unclear etiology at this time. Patient does have prior history of significant alcohol use, however pancreas on CT appears normal. Patient does not have the typical body habitus for type 2 diabetes. Consider obtaining islet cell antibody and C-peptide in the future. Hemoglobin A1c above 11 -patient was adequately fluid-resuscitated Anion gap has closed and patient is transition to subcutaneous insulin. Was given lantus 40 U last night 12/19, decreased to lantus 30 U for tonight. On SSI. Diet advanced to diabetic diet Replace low phosphate and potassium Continue Colace, Dulcolax suppository Continue MiraLax Patient did get enema had a bowel movement Patient with neurogenic bladder, with urinary retention. Patient did have 800 mL in urine and a Fitzpatrick was inserted. UA was negative for any evidence of infection and cultures pending CT scan of the abdomen and pelvis suggested possible proctitis, official reading showed sacrococcygeal osteomyelitis with phlegmon but has small early abscess, large volume stool, distended bladder and cirrhosis no mention of ascites. Constipation and urinary retention was addressed as above -patient is afebrile, normal white count. Blood cultures obtained and are pending -will hold antibiotics at this time -skin assessment performed, small stage II pressure ulcer noted on left gluteal fold, however nothing noted on sacrum. -given CT findings, will order MRI w and wo contrast Chronic and stable, patient on Coumadin for possible DVT prophylaxis INR is therapeutic will continue to monitor Unclear reason as to why patient is on Coumadin at this time. Continue for now and check daily PT INR 12/21/21 pt doing ok abscess on imaging c/s surgery carbapenem in DM pt supportive care Subjective Date/time seen: 12/21/21 19:02 no complaints unsure why he has developed DM, reports this is a new dx Review of Systems Review of Systems: All systems reviewed & are unremarkable except as noted in HPI and below Exam Narrative: General: no acute distress cooperative HEENT: EOMI sclerae is clear Neck: Supple Respiratory: Clear to auscultation bilaterally, no wheezing Cardiac: Regular rate and rhythm, S1-S2 is normal Abdomen: Soft, nontender, distended, normoactive bowel sounds Extremities: Bilateral lower and upper extremity atrophy, palpable pedal pulses Neuro: Alert, awake, oriented, paraplegia, able to move bilateral upper extremities spontaneously, he does have has sensation on the legs but is abnormal Psych: Normal mentation, sad affect : Fitzpatrick in place Objective Data Vital Signs Vital Signs: Vital Signs - 24 hr 12/20/21 21:35 12/20/21 20:00 12/20/21 22:00 Temperature 99.3 F 99.3 F Pulse Rate 109 H Respiratory Rate 20 Blood Pressure 129/71 Pulse Oximetry 98 Oxygen Delivery Room Air 12/20/21 23:27 12/21/21 00:00 12/21/21 04:00 Temperature 98.9 F Pulse Rate 102 H 89 Respiratory Rate Blood Pressure Pulse Oximetry Oxygen Delivery 12/21/21 06:00 12/21/21 09:11 12/21/21 14:00 Temperature 97.0 F L 98.7 F Pulse Rate 89 89 83 Respiratory Rate 18 18 16 Blood Pressure 111/56 L 115/69 Pulse Oximetry 96 96 98 Oxygen Delivery Room Air 12/21/21 12:00 12/21/21 16:00 Temperature Pulse Rate 90 83 Respiratory Rate Blood Pressure Pulse Oximetry Oxygen Delivery Intake/Output Intake/Output: Intake
[2021-12-21 20:17] LABS: Glucose Point of Care 252 mg/dl (65-105)
[2021-12-21] MEDS: TAMSULOSIN HCL 0.4 MG CAPSULE PO (20:50)
[2021-12-21] MEDS: diazePAM (*CRX) 2 MG TABLET PO (20:50)
[2021-12-21] MEDS: INSULIN GLARGINE (*BKC) 100 UNITS/ML 30 UNITS SUB-Q (20:50)
[2021-12-22] VITALS (10 sets, daily range): BP systolic 100–135; BP diastolic 58–87; PULSE 89–101; RESP 14–18; TEMP 36.6–37.4; O2SAT 95–97
[2021-12-22 06:25] LABS: Basophils Absolute Auto 0.1 K/mm3 (0.0-0.1); Basophils Percent Auto 0.9 % (0.2-1.2); Eosinophils Absolute Auto 0.2 K/mm3 (0-0.3); Eosinophils Percent Auto 3.3 % (0-4.4); Hematocrit 41.9 % (42.0-52.0); Hemoglobin 14.5 g/dL (14.0-18.0); Immature Granulocyte Absolute 0.04 K/mm3 (0.00-0.031); Immature Granulocyte Percent A 0.6 % (0-0.5); Lymphocytes Absolute Auto 2.41 K/mm3 (0.9-3.2); Lymphocytes Percent Auto 35.9 % (18.3-44.2); Mean Corpuscular HGB Conc 34.6 g/dl (32-36); Mean Corpuscular Hemoglobin 29.7 pg (26-34); Mean Corpuscular Volume 85.9 fl (80-100); Mean Platelet Volume 11.4 fl (7.4-10.4); Monocytes Absolute Auto 0.7 K/mm3 (0.1-0.6); Neutrophils Absolute Auto 3.3 K/mm3 (1.3-6.7); Neutrophils Percent Auto 49.3 % (45.5-73.1); Platelet Count Result 193 k/mm3 (150-375); Red Blood Count 4.88 M/mm3 (4.6-6.20); Red Cell Distribution Width 14.8 % (11.5-14.5); White Blood Count 6.7 K/mm3 (4.5-10.0)
[2021-12-22 06:30] LABS: INR 1.9; Prothrombin Time 20.8 Seconds (11.1-14.7)
[2021-12-22 06:36] LABS: Anion Gap 9 mmol/L (8-16); Blood Urea Nitrogen 5 mg/dL (9-20); CRP 8.5 mg/dL (<1.0); Calcium 9.1 mg/dL (8.4-10.2); Carbon Dioxide 31 mmol/L (22-30); Chloride 97 mmol/L (98-107); Estimated CRCL calculation 256 ml/min; Estimated Glomerular Filt Rate > 60; Glucose 124 mg/dL (65-110); Magnesium 2.2 mg/dL (1.6-2.3); Potassium 2.7 mmol/L (3.4-5.0); Sodium 137 mmol/L (137-145)
[2021-12-22 07:42] LABS: Glucose Point of Care 114 mg/dl (65-105)
[2021-12-22] MEDS: GABAPENTIN 400 MG CAPSULE PO ×3 (08:02→16:11)
[2021-12-22] MEDS: DULoxetine HCL 60 MG CAPSULE.DR PO (08:02)
[2021-12-22] MEDS: EUCERIN CREAM 120 GM JAR 1 APPLIC TOPICAL (08:02)
[2021-12-22] MEDS: methocarbamoL 750 MG TABLET PO ×2 (08:02→20:36)
[2021-12-22] MEDS: MUPIROCIN 2% OINT 22 GM TUBE 1 APPLIC TOPICAL ×4 (08:02→16:11)
[2021-12-22] MEDS: polyethylene glycoL 3350 17 GM POWD.PACK PO (08:06)
[2021-12-22] MEDS: DOCUSATE SODIUM 100 MG CAPSULE PO ×2 (08:06→20:36)
[2021-12-22] MEDS: KCL 40 MEQ/0.9% SOD CHL 1,000 ML 100 ML IV CONT (08:07)
--- NOTE | 2021-12-22 09:01 | PCNFU ---
Nutrition Follow-Up Complete: Goal: Pt current nutrition is . Nutrition recommendation: Last recorded weight is 74.8 kg. Bowel Motility: Labs Reviewed: Meds Noted: Skin: Additional Notes:
--- NOTE | 2021-12-22 09:06 | PCNFU ---
Nutrition Follow-Up Complete: Increased nutrient needs related to skin breakdown as evidenced by DTPI to left and right buttocks. Goal: Wound healing. Pt current nutrition is Diabetic consistent carb. Nutrition recommendation: Add ABBEY BID for wound healing. Last recorded weight is 74.8 kg - up 4kg from admission. Bowel Motility: +BM 12/19 Labs Reviewed: K:2.7, BUN:5, Cr:0.3, Glu:252 Meds Noted: novolog, coumadin, colace Skin: DTPI to left and right buttocks Additional Notes: Pt continues on a diabetic diet, intake good at 100% most all meals. Pt has new pressure areas to buttocks. Will add ABBEY BID for an additional 80kcals, 2.5g protein and HMB/arginine/glutamine for wound healing.
--- NOTE | 2021-12-22 09:33 | PC.NURSE ---
20 meq IV now, and 40 meq PO bid today.
[2021-12-22] MEDS: KCL 20 MEQ/SW 100 ML 100 ML 50 MEQ IVPB (09:44)
[2021-12-22] MEDS: POTASSIUM CHLORIDE 20 MEQ TABLET 40 MEQ PO ×2 (09:44→16:12)
--- NOTE | 2021-12-22 10:15 | PC.NURSE ---
called MD Astudillo office left message, awaiting call back.
--- NOTE | 2021-12-22 10:28 | PC.NURSE ---
Astudillo office called back, paging Chiung now, awaiting call back.
--- NOTE | 2021-12-22 11:33 | PC.NURSE ---
MD Astudillo saw pt this shift r/t Chronic sacrococcygeal osteomyelitis with small abscess, worsened from 02/11/21.
[2021-12-22 11:35] LABS: Glucose Point of Care 166 mg/dl (65-105)
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
--- NOTE | 2021-12-22 12:50 | PC.NURSE ---
ID pharmacist consulted for Chronic sacrococcygeal osteomyelitis with small abscess, worsened from 02/11/21.
[2021-12-22 16:52] LABS: Glucose Point of Care 290 mg/dl (65-105)
[2021-12-22] MEDS: INSULIN ASPART (*BKC) 100 UNITS/ML SUB-Q (16:56)
[2021-12-22] MEDS: WARFARIN (*PBKC) 2.5 MG TABLET PO (16:56)
[2021-12-22] MEDS: WARFARIN (*PBKC) 4 MG TABLET PO (16:56)
--- NOTE | 2021-12-22 17:18 | PM.IMPN ---
Progress Note: A&P Assessment and Plan (1) DKA (diabetic ketoacidosis): (2) Acute hypokalemia: (3) Constipation due to neurogenic bowel: (4) Urinary retention: (5) Abnormal computed tomography of abdomen and pelvis: (6) Quadriplegia, C5-C7 incomplete: (7) Anticoagulant long-term use: (8) Decubitus skin ulcer: (9) Sacral osteomyelitis: (10) Abscess of sacrum: (11) Hypokalemia: Code(s): E87.6 - Hypokalemia Status: Acute Plan 12/20/21 Patient presented with abdominal pain, nausea, vomiting. Blood sugars were > 400 along with anion gap metabolic acidosis, low serum bicarb. Likely new onset diabetes -unclear etiology at this time. Patient does have prior history of significant alcohol use, however pancreas on CT appears normal. Patient does not have the typical body habitus for type 2 diabetes. Consider obtaining islet cell antibody and C-peptide in the future. Hemoglobin A1c above 11 -patient was adequately fluid-resuscitated Anion gap has closed and patient is transition to subcutaneous insulin. Was given lantus 40 U last night 12/19, decreased to lantus 30 U for tonight. On SSI. Diet advanced to diabetic diet Replace low phosphate and potassium Continue Colace, Dulcolax suppository Continue MiraLax Patient did get enema had a bowel movement Patient with neurogenic bladder, with urinary retention. Patient did have 800 mL in urine and a Fitzpatrick was inserted. UA was negative for any evidence of infection and cultures pending CT scan of the abdomen and pelvis suggested possible proctitis, official reading showed sacrococcygeal osteomyelitis with phlegmon but has small early abscess, large volume stool, distended bladder and cirrhosis no mention of ascites. Constipation and urinary retention was addressed as above -patient is afebrile, normal white count. Blood cultures obtained and are pending -will hold antibiotics at this time -skin assessment performed, small stage II pressure ulcer noted on left gluteal fold, however nothing noted on sacrum. -given CT findings, will order MRI w and wo contrast Chronic and stable, patient on Coumadin for possible DVT prophylaxis INR is therapeutic will continue to monitor Unclear reason as to why patient is on Coumadin at this time. Continue for now and check daily PT INR 12/21/21 pt doing ok abscess on imaging c/s surgery carbapenem in DM pt supportive care 12/22/21 seen by surgery no surgical indication at this time: small adjacent abscess, no skin opening/breakdown, WBC normal, no s/s sepsis, cont off-loading pressure to area, cont IV abx, would consult ID pharmacist for recs, no acute surgical indications, would need reimaging after course of IV abx pt started on Chris antibiotic protocol for Diabetic pts Subjective Date/time seen: 12/22/21 17:18 no overnight events no new complaints Review of Systems Review of Systems: All systems reviewed & are unremarkable except as noted in HPI and below Exam Narrative: General: no acute distress cooperative HEENT: EOMI sclerae is clear Neck: Supple Respiratory: Clear to auscultation bilaterally, no wheezing Cardiac: Regular rate and rhythm, S1-S2 is normal Abdomen: Soft, nontender, distended, normoactive bowel sounds Extremities: Bilateral lower and upper extremity atrophy, palpable pedal pulses Neuro: Alert, awake, oriented, paraplegia, able to move bilateral upper extremities spontaneously, he does have has sensation on the legs but is abnormal Psych: Normal mentation, sad affect : Fitzpatrick in place Objective Data Vital Signs Vital Signs: Vital Signs - 24 hr 12/21/21 20:00 12/21/21 22:00 12/22/21 00:00 Temperature 99.5 F Pulse Rate 91 106 H 100 Respiratory Rate 18 Blood Pressure 105/65 Pulse Oximetry 98 Oxygen Delivery 12/22/21 04:00 12/22/21 06:00 12/22/21 07:35 Temperature 99.4 F Pulse Rate 101 H 94 94 Respiratory Rate 18 18 Blood Pressure 100/58 L Pulse Oximetry 95 95 O
[2021-12-22] MEDS: TAMSULOSIN HCL 0.4 MG CAPSULE PO (20:36)
[2021-12-22] MEDS: diazePAM (*CRX) 2 MG TABLET PO (20:36)
[2021-12-22] MEDS: INSULIN GLARGINE (*BKC) 100 UNITS/ML 30 UNITS SUB-Q (20:42)
[2021-12-22 21:34] LABS: Glucose Point of Care 282 mg/dl (65-105)
[2021-12-22] MEDS: ACETAMINOPHEN 325 MG TABLET 650 MG PO (21:35)
[2021-12-22] MEDS: MELATONIN 3 MG TABLET PO (23:04)
[2021-12-23] VITALS (8 sets, daily range): BP systolic 98–121; BP diastolic 64–77; PULSE 73–102; RESP 16–18; TEMP 36.6–37.6; O2SAT 96–98
[2021-12-23 06:31] LABS: INR 2.1; Prothrombin Time 23.1 Seconds (11.1-14.7)
[2021-12-23 07:42] LABS: Glucose Point of Care 202 mg/dl (65-105)
[2021-12-23] MEDS: INSULIN ASPART (*BKC) 100 UNITS/ML SUB-Q ×3 (08:35→16:56)
[2021-12-23] MEDS: MUPIROCIN 2% OINT 22 GM TUBE 1 APPLIC TOPICAL ×4 (08:37→16:59)
[2021-12-23] MEDS: DULoxetine HCL 60 MG CAPSULE.DR PO (08:41)
[2021-12-23] MEDS: EUCERIN CREAM 120 GM JAR 1 APPLIC TOPICAL (08:42)
[2021-12-23] MEDS: GABAPENTIN 400 MG CAPSULE PO ×3 (08:42→16:59)
[2021-12-23] MEDS: methocarbamoL 750 MG TABLET PO ×2 (08:42→20:45)
[2021-12-23] MEDS: polyethylene glycoL 3350 17 GM POWD.PACK PO (08:49)
--- NOTE | 2021-12-23 08:56 | P.PNIM_ITS ---
Progress Note: A&P Assessment and Plan (1) DKA (diabetic ketoacidosis): Code(s): E11.10 - Type 2 diabetes mellitus with ketoacidosis without coma Status: Acute (2) Acute hypokalemia: Code(s): E87.6 - Hypokalemia Status: Acute (3) Constipation due to neurogenic bowel: Code(s): K59.00 - Constipation, unspecified; K59.2 - Neurogenic bowel, not elsewhere classified Status: Acute (4) Urinary retention: Code(s): R33.9 - Retention of urine, unspecified Status: Acute (5) Abnormal computed tomography of abdomen and pelvis: Code(s): R93.5 - Abnormal findings on diagnostic imaging of other abdominal regions, including retroperitoneum Status: Acute (6) Quadriplegia, C5-C7 incomplete: Code(s): G82.54 - Quadriplegia, C5-C7 incomplete Status: Acute (7) Anticoagulant long-term use: Code(s): Z79.01 - termite exterminator (current) use of anticoagulants Status: Acute (8) Decubitus skin ulcer: Code(s): L89.90 - Pressure ulcer of unspecified site, unspecified stage Status: Acute (9) Sacral osteomyelitis: Code(s): M46.28 - Osteomyelitis of vertebra, sacral and sacrococcygeal region Status: Acute (10) Abscess of sacrum: Code(s): M46.28 - Osteomyelitis of vertebra, sacral and sacrococcygeal region Status: Acute (11) Hypokalemia: Code(s): E87.6 - Hypokalemia Status: Acute Plan 12/20/21 Patient presented with abdominal pain, nausea, vomiting. Blood sugars were > 400 along with anion gap metabolic acidosis, low serum bicarb. Likely new onset diabetes -unclear etiology at this time. Patient does have prior history of significant alcohol use, however pancreas on CT appears normal. Patient does not have the typical body habitus for type 2 diabetes. Consider obtaining islet cell antibody and C-peptide in the future. Hemoglobin A1c above 11 -patient was adequately fluid-resuscitated Anion gap has closed and patient is transition to subcutaneous insulin. Was given lantus 40 U last night 12/19, decreased to lantus 30 U for tonight. On SSI. Diet advanced to diabetic diet Replace low phosphate and potassium Continue Colace, Dulcolax suppository Continue MiraLax Patient did get enema had a bowel movement Patient with neurogenic bladder, with urinary retention. Patient did have 800 mL in urine and a Fitzpatrick was inserted. UA was negative for any evidence of infection and cultures pending CT scan of the abdomen and pelvis suggested possible proctitis, official reading showed sacrococcygeal osteomyelitis with phlegmon but has small early abscess, large volume stool, distended bladder and cirrhosis no mention of ascites. Constipation and urinary retention was addressed as above -patient is afebrile, normal white count. Blood cultures obtained and are pending -will hold antibiotics at this time -skin assessment performed, small stage II pressure ulcer noted on left gluteal fold, however nothing noted on sacrum. -given CT findings, will order MRI w and wo contrast Chronic and stable, patient on Coumadin for possible DVT prophylaxis INR is therapeutic will continue to monitor Unclear reason as to why patient is on Coumadin at this time. Continue for now and check daily PT INR 12/21/21 pt doing ok abscess on imaging c/s surgery carbapenem in DM pt supportive care 12/22/21 seen by surgery no surgical indication at this time: small adjacent abscess, no skin opening/breakdown, WBC normal, no s/s sepsis, cont off-loading pressure to area, cont IV abx, would consult ID pharmacist for recs
--- NOTE | 2021-12-23 11:47 | PM.PNGS ---
Progress Note: A&P Assessment and Plan (1) Sacral osteomyelitis: Code(s): M46.28 - Osteomyelitis of vertebra, sacral and sacrococcygeal region Status: Acute Assessment and Plan: will need likely 6 wks of IV abx followed by reimaging, no acute surgical indications at this time, cont to off load pressure, will sign off, call c ?s, issues Subjective Subjective Date/Time Seen: 12/23/21 11:47 no acute issues, no c/o Review of Systems Review of Systems: All systems reviewed & are unremarkable except as noted in HPI and below Exam Const: General: cooperative, comfortable and no acute distress Resp: Auscultation: clear to auscultation bilaterally Cardio: Rate: regular rate Rhythm: regular rhythm GI: Inspection: normal to inspection GI Palp: Yes Soft to palpation and No Tenderness to palpation present (GI) Back/Spine/Pelvis: Other: sacral - no skin breakdown, no fluctuance Objective Data Vital Signs Vital Signs: Vital Signs - 24 hr 12/22/21 12:00 12/22/21 14:00 12/22/21 16:00 Temperature 36.6 C Pulse Rate 94 89 90 Respiratory Rate 14 Blood Pressure 110/61 Pulse Oximetry 96 Oxygen Delivery 12/22/21 21:32 12/22/21 20:00 12/23/21 00:00 Temperature 37.3 C Pulse Rate 91 91 92 Respiratory Rate 16 Blood Pressure 135/87 Pulse Oximetry 97 Oxygen Delivery 12/22/21 20:00 12/23/21 05:44 12/23/21 04:00 Temperature 37.6 C Pulse Rate 92 87 88 Respiratory Rate 16 16 Blood Pressure 98/64 L Pulse Oximetry 97 96 Oxygen Delivery Room Air 12/23/21 08:00 Temperature Pulse Rate 80 Respiratory Rate Blood Pressure Pulse Oximetry Oxygen Delivery Intake/Output Intake/Output: Intake & Output 12/20/21 12/21/21 12/22/21 12/23/21 23:59 23:59 23:59 23:59 Intake Total 1485 2014 1280 1200 Output Total 4350 3700 2800 2200 Balance -2865 -1686 -1520 -1000 Meds/Results Medications: Active Medications Generic Name Dose Route Start Last Admin Trade Name Freq PRN Reason Stop Dose Admin Acetaminophen 650 mg 12/19/21 06:41 12/22/21 21:35 Acetaminophen 325 Mg Tablet PO 650 mg Q4H PRN Administration Mild Pain (1-3) or Fever Bisacodyl 10 mg 12/19/21 09:00 12/23/21 08:44 Bisacodyl 10 Mg Suppository RECTAL Not Given QAM MC Dextrose 12.5 gm 12/19/21 22:43 Dextrose 50% 25 Gm/50 Ml Syringe IV PUSH PRN PRN Hypoglycemia Protocol Diazepam 2 mg 12/19/21 21:00 12/22/21 20:36 Diazepam (*Crx) 2 Mg Tablet PO 2 mg HS MC Administration Docusate Sodium 100 mg 12/19/21 09:00 12/23/21 08:44 Docusate Sodium 100 Mg Capsule PO Not Given Q12HR MC Duloxetine HCl 60 mg 12/19/21 09:00 12/23/21 08:41 Duloxetine Hcl 60 Mg Capsule.Dr PO 60 mg DAILY MC Administration Gabapentin 400 mg 12/19/21 09:00 12/23/21 08:42 Gabapentin 400 Mg Capsule PO 400 mg TID MC Administration Glucagon 1 mg 12/19/21 22:43 Glucagon For Inj 1 Mg Vial IM PRN PRN Hypoglycemia Protocol Glucose 15 gm 12/19/21 22:43 Glucose Oral Gel 15 Gm Of Glucse In 37.5 Gm Tube PO PRN PRN Hypoglycemia Protocol Dextrose 1,000 mls @ 100 mls/hr 12/19/21 22:43 Dextrose 5% 1,000 Ml IVPB PRN PRN Hypoglycemia Protocol Cefepime HCl 2 gm in 50 mls @ 100 mls/hr 12/23/21 14:00 Maxipime 2 Gm/D5w 50 Ml IVPB Q8HR MC Metronidazole 500 mg in 100 mls @ 100 mls/hr 12/23/21 14:00 Flagyl 500 Mg/Iso Soln 100 Ml IVPB Q8HR MC Vancomycin HCl 1,250 mg in 250 mls @ 200 mls/hr 12/23/21 10:00 12/23/21 10:51 Vancomycin 1,250 Mg/D5w 250 Ml IVPB Infused Q12H MC Infusion Insulin Aspart 4 - 8 units 12/21/21 08:00 12/23/21 08:35 Insulin Aspart (*Bkc) 100 Units/Ml SUB-Q 4 units TIDWM MC Administration Protocol Insulin Glargine 30 units 12/20/21 21:00 12/22/21 20:42 Insulin Glargine (*Bkc) 100 Units/Ml SUB-Q 30 units HS MC
[2021-12-23 12:04] LABS: Glucose Point of Care 253 mg/dl (65-105)
[2021-12-23] MEDS: metroNIDAZOLE 500 MG/ISO 100ML 500 MG/100 ML BAG 100 MG IVPB ×2 (14:53→20:46)
[2021-12-23 16:29] LABS: Glucose Point of Care 299 mg/dl (65-105)
[2021-12-23] MEDS: WARFARIN (*PBKC) 4 MG TABLET PO (16:59)
[2021-12-23] MEDS: WARFARIN (*PBKC) 2.5 MG TABLET PO (16:59)
[2021-12-23] MEDS: TAMSULOSIN HCL 0.4 MG CAPSULE PO (20:45)
[2021-12-23] MEDS: DOCUSATE SODIUM 100 MG CAPSULE PO (20:45)
[2021-12-23] MEDS: diazePAM (*CRX) 2 MG TABLET PO (20:45)
[2021-12-23] MEDS: INSULIN GLARGINE (*BKC) 100 UNITS/ML 20 UNITS SUB-Q (20:58)
[2021-12-23 21:49] LABS: Glucose Point of Care 260 mg/dl (65-105)
[2021-12-23] MEDS: MELATONIN 3 MG TABLET PO (23:53)
[2021-12-24] MEDS: metroNIDAZOLE 500 MG/ISO 100ML 500 MG/100 ML BAG 100 MG IVPB ×3 (05:48→22:41)
[2021-12-24 05:58] VITALS: BP 102/45; PULSE 90; RESP 16; TEMP 36.8; O2SAT 96
[2021-12-24 06:27] LABS: Basophils Absolute Auto 0.1 K/mm3 (0.0-0.1); Basophils Percent Auto 0.9 % (0.2-1.2); Eosinophils Absolute Auto 0.3 K/mm3 (0-0.3); Eosinophils Percent Auto 4.8 % (0-4.4); Hematocrit 40.2 % (42.0-52.0); Hemoglobin 13.3 g/dL (14.0-18.0); Immature Granulocyte Absolute 0.03 K/mm3 (0.00-0.031); Immature Granulocyte Percent A 0.4 % (0-0.5); Lymphocytes Absolute Auto 1.88 K/mm3 (0.9-3.2); Lymphocytes Percent Auto 27.3 % (18.3-44.2); Mean Corpuscular HGB Conc 33.1 g/dl (32-36); Mean Corpuscular Hemoglobin 29.8 pg (26-34); Mean Corpuscular Volume 90.1 fl (80-100); Mean Platelet Volume 11.2 fl (7.4-10.4); Monocytes Absolute Auto 0.8 K/mm3 (0.1-0.6); Monocytes Percent Auto 11.2 % (2.6-8.5); Neutrophils Absolute Auto 3.8 K/mm3 (1.3-6.7); Neutrophils Percent Auto 55.4 % (45.5-73.1); Platelet Count Result 239 k/mm3 (150-375); Red Blood Count 4.46 M/mm3 (4.6-6.20); Red Cell Distribution Width 15.1 % (11.5-14.5); White Blood Count 6.9 K/mm3 (4.5-10.0)
[2021-12-24 06:32] LABS: INR 2.4; Prothrombin Time 24.9 Seconds (11.1-14.7)
[2021-12-24 06:37] LABS: C-Peptide 0.65 ng/mL (0.80-3.85)
[2021-12-24 06:46] LABS: Alanine Aminotransferase 13 U/L (6-50); Albumin Level 3.4 g/dL (3.5-5.1); Alkaline Phosphatase 90 U/L (38-126); Anion Gap 6 mmol/L (8-16); Aspartate Amino Transferase 24 U/L (17-59); Bilirubin,Total 0.4 mg/dL (0.2-1.3); Blood Urea Nitrogen 7 mg/dL (9-20); CRP 3.8 mg/dL (<1.0); Calcium 8.9 mg/dL (8.4-10.2); Carbon Dioxide 30 mmol/L (22-30); Chloride 98 mmol/L (98-107); Estimated CRCL calculation 200 ml/min; Estimated Glomerular Filt Rate > 60; Glucose 205 mg/dL (65-110); Magnesium 2.2 mg/dL (1.6-2.3); Potassium 3.5 mmol/L (3.4-5.0); Sodium 134 mmol/L (137-145)
[2021-12-24 07:40] LABS: Glucose Point of Care 206 mg/dl (65-105)
[2021-12-24 07:45] LABS: Erythrocyte Sedimentation Rate 27 mm/hr (0-20)
[2021-12-24] MEDS: methocarbamoL 750 MG TABLET PO ×2 (08:52→22:10)
[2021-12-24] MEDS: DULoxetine HCL 60 MG CAPSULE.DR PO (08:52)
[2021-12-24] MEDS: GABAPENTIN 400 MG CAPSULE PO ×3 (08:52→16:30)
[2021-12-24] MEDS: EUCERIN CREAM 120 GM JAR 1 APPLIC TOPICAL (08:53)
[2021-12-24] MEDS: INSULIN ASPART (*BKC) 100 UNITS/ML SUB-Q ×2 (08:53→16:34)
[2021-12-24] MEDS: INSULIN GLARGINE (*BKC) 100 UNITS/ML 20 UNITS SUB-Q ×2 (08:53→16:34)
[2021-12-24] MEDS: MUPIROCIN 2% OINT 22 GM TUBE 1 APPLIC TOPICAL (08:53)
[2021-12-24 09:29] VITALS: PULSE 78; O2SAT 97
--- NOTE | 2021-12-24 09:35 | PM.IMPN ---
Progress Note: A&P Assessment and Plan (1) DKA (diabetic ketoacidosis): Code(s): E11.10 - Type 2 diabetes mellitus with ketoacidosis without coma Status: Acute (2) Acute hypokalemia: Code(s): E87.6 - Hypokalemia Status: Acute (3) Constipation due to neurogenic bowel: Code(s): K59.00 - Constipation, unspecified; K59.2 - Neurogenic bowel, not elsewhere classified Status: Acute (4) Urinary retention: Code(s): R33.9 - Retention of urine, unspecified Status: Acute (5) Abnormal computed tomography of abdomen and pelvis: Code(s): R93.5 - Abnormal findings on diagnostic imaging of other abdominal regions, including retroperitoneum Status: Acute (6) Quadriplegia, C5-C7 incomplete: Code(s): G82.54 - Quadriplegia, C5-C7 incomplete Status: Acute (7) Anticoagulant long-term use: Code(s): Z79.01 - exterminator (current) use of anticoagulants Status: Acute (8) Decubitus skin ulcer: Code(s): L89.90 - Pressure ulcer of unspecified site, unspecified stage Status: Acute (9) Sacral osteomyelitis: Code(s): M46.28 - Osteomyelitis of vertebra, sacral and sacrococcygeal region Status: Acute (10) Abscess of sacrum: Code(s): M46.28 - Osteomyelitis of vertebra, sacral and sacrococcygeal region Status: Acute (11) Hypokalemia: Code(s): E87.6 - Hypokalemia Status: Acute Plan 12/20/21 Patient presented with abdominal pain, nausea, vomiting. Blood sugars were > 400 along with anion gap metabolic acidosis, low serum bicarb. Likely new onset diabetes -unclear etiology at this time. Patient does have prior history of significant alcohol use, however pancreas on CT appears normal. Patient does not have the typical body habitus for type 2 diabetes. Consider obtaining islet cell antibody and C-peptide in the future. Hemoglobin A1c above 11 -patient was adequately fluid-resuscitated Anion gap has closed and patient is transition to subcutaneous insulin. Was given lantus 40 U last night 12/19, decreased to lantus 30 U for tonight. On SSI. Diet advanced to diabetic diet Replace low phosphate and potassium Continue Colace, Dulcolax suppository Continue MiraLax Patient did get enema had a bowel movement Patient with neurogenic bladder, with urinary retention. Patient did have 800 mL in urine and a Fitzpatrick was inserted. UA was negative for any evidence of infection and cultures pending CT scan of the abdomen and pelvis suggested possible proctitis, official reading showed sacrococcygeal osteomyelitis with phlegmon but has small early abscess, large volume stool, distended bladder and cirrhosis no mention of ascites. Constipation and urinary retention was addressed as above -patient is afebrile, normal white count. Blood cultures obtained and are pending -will hold antibiotics at this time -skin assessment performed, small stage II pressure ulcer noted on left gluteal fold, however nothing noted on sacrum. -given CT findings, will order MRI w and wo contrast Chronic and stable, patient on Coumadin for possible DVT prophylaxis INR is therapeutic will continue to monitor Unclear reason as to why patient is on Coumadin at this time. Continue for now and check daily PT INR 12/21/21 pt doing ok abscess on imaging c/s surgery carbapenem in DM pt supportive care 12/22/21 seen by surgery no surgical indication at this time: small adjacent abscess, no skin opening/breakdown, WBC normal, no s/s sepsis, cont off-loading pressure to area, cont IV abx, would consult ID pharmacist for recs, no acute surgical indications, would need reimaging after course of IV abx pt started on Chris antibiotic protocol for Diabetic pts 12/23/21 no ID pharm available untl Saturday az Chris protocol Vanco, cefepime, metronidazole cont current care insert PICC BG not at goal lantus 20U BID cont HD ISS no surgery at this time cont warfarin at INR goal 2-3
[2021-12-24 11:32] LABS: Glucose Point of Care 186 mg/dl (65-105)
[2021-12-24 14:00] VITALS: BP 128/84; PULSE 86; RESP 20; TEMP 37.2; O2SAT 97
[2021-12-24] MEDS: ACIDOPHILUS/BULGARICUS CHEWABLE TABLET 1 TABLET PO ×3 (14:03→22:10)
[2021-12-24] MEDS: WARFARIN (*PBKC) 2.5 MG TABLET PO (16:30)
[2021-12-24] MEDS: WARFARIN (*PBKC) 4 MG TABLET PO (16:30)
--- NOTE | 2021-12-24 16:31 | PC.NURSE ---
per MD instructions, pt was placed in chair via [employer]. Pt was in chair for approximately 2 hours (with the goal of remaining there until after dinner at 1645). Pt called wanting to return to the bed because he stated that he was having leg spasms and did not want to remain in the chair. I observed pt has having slid down the chair (while remaining still fully on the chair). In the time that it took to get the [employer] and assistance to return pt to the bed, pt had slid even further down the chair toward the floor; however, pt was still in the chair. Pt was returned to the bed safely and without incident.
[2021-12-24 16:52] LABS: Glucose Point of Care 289 mg/dl (65-105)
[2021-12-24] MEDS: SACCHAROMYCES BOULARDII 250 MG CAPSULE PO (17:26)
[2021-12-24 20:00] VITALS: PULSE 88; RESP 17; O2SAT 97
[2021-12-24 22:00] VITALS: BP 100/52; PULSE 88; RESP 17; TEMP 36.6; O2SAT 97
[2021-12-24 22:05] LABS: Vancomycin Trough < 5.0 ug/mL (10.0-20.0)
[2021-12-24] MEDS: diazePAM (*CRX) 2 MG TABLET PO (22:09)
[2021-12-24] MEDS: DOCUSATE SODIUM 100 MG CAPSULE PO (22:10)
[2021-12-24] MEDS: TAMSULOSIN HCL 0.4 MG CAPSULE PO (22:10)
[2021-12-24] MEDS: MELATONIN 3 MG TABLET PO (23:16)
[2021-12-25 02:58] LABS: Glucose Point of Care 265 mg/dl (65-105)
[2021-12-25] MEDS: metroNIDAZOLE 500 MG/ISO 100ML 500 MG/100 ML BAG 100 MG IVPB ×2 (05:39→13:04)
[2021-12-25 05:58] VITALS: BP 103/60; PULSE 81; RESP 18; TEMP 36.8; O2SAT 97
[2021-12-25 06:29] LABS: Basophils Absolute Auto 0.1 K/mm3 (0.0-0.1); Basophils Percent Auto 1.1 % (0.2-1.2); Eosinophils Absolute Auto 0.4 K/mm3 (0-0.3); Eosinophils Percent Auto 7.3 % (0-4.4); Hematocrit 39.3 % (42.0-52.0); Hemoglobin 13.2 g/dL (14.0-18.0); Immature Granulocyte Absolute 0.03 K/mm3 (0.00-0.031); Immature Granulocyte Percent A 0.6 % (0-0.5); Lymphocytes Absolute Auto 1.69 K/mm3 (0.9-3.2); Lymphocytes Percent Auto 32.4 % (18.3-44.2); Mean Corpuscular HGB Conc 33.6 g/dl (32-36); Mean Corpuscular Hemoglobin 29.8 pg (26-34); Mean Corpuscular Volume 88.7 fl (80-100); Mean Platelet Volume 11.4 fl (7.4-10.4); Monocytes Absolute Auto 0.6 K/mm3 (0.1-0.6); Monocytes Percent Auto 12.1 % (2.6-8.5); Neutrophils Absolute Auto 2.4 K/mm3 (1.3-6.7); Neutrophils Percent Auto 46.5 % (45.5-73.1); Platelet Count Result 246 k/mm3 (150-375); Red Blood Count 4.43 M/mm3 (4.6-6.20); Red Cell Distribution Width 15.2 % (11.5-14.5); White Blood Count 5.2 K/mm3 (4.5-10.0)
[2021-12-25 06:35] LABS: Anion Gap 8 mmol/L (8-16); Blood Urea Nitrogen 9 mg/dL (9-20); Calcium 8.8 mg/dL (8.4-10.2); Carbon Dioxide 29 mmol/L (22-30); Chloride 101 mmol/L (98-107); Estimated CRCL calculation 200 ml/min; Estimated Glomerular Filt Rate > 60; Glucose 195 mg/dL (65-110); Potassium 3.3 mmol/L (3.4-5.0); Sodium 138 mmol/L (137-145)
[2021-12-25 06:43] LABS: INR 2.6; Prothrombin Time 26.6 Seconds (11.1-14.7)
[2021-12-25] MEDS: INSULIN GLARGINE (*BKC) 100 UNITS/ML 20 UNITS SUB-Q ×2 (09:11→17:13)
[2021-12-25] MEDS: DULoxetine HCL 60 MG CAPSULE.DR PO (09:11)
[2021-12-25] MEDS: SACCHAROMYCES BOULARDII 250 MG CAPSULE PO ×3 (09:11→17:13)
[2021-12-25] MEDS: GABAPENTIN 400 MG CAPSULE PO ×3 (09:12→17:13)
[2021-12-25] MEDS: DOCUSATE SODIUM 100 MG CAPSULE PO (09:12)
[2021-12-25] MEDS: methocarbamoL 750 MG TABLET PO (09:12)
[2021-12-25] MEDS: EUCERIN CREAM 120 GM JAR 1 APPLIC TOPICAL (09:12)
[2021-12-25] MEDS: ACIDOPHILUS/BULGARICUS CHEWABLE TABLET 1 TABLET PO ×3 (09:12→17:13)
[2021-12-25] MEDS: MUPIROCIN 2% OINT 22 GM TUBE 1 APPLIC TOPICAL (09:12)
[2021-12-25 11:16] LABS: Glucose Point of Care 196 mg/dl (65-105)
--- NOTE | 2021-12-25 12:12 | PM.DS ---
DS: Admitting Diagnosis Discharge Date 12/25/21 Admitting Diagnosis (1) DKA (diabetic ketoacidosis): (2) Acute hypokalemia: ? (3) Constipation due to neurogenic bowel: ?. (4) Urinary retention: ? (5) Acute hyponatremia: ? (6) Quadriplegia, C5-C7 incomplete: (7) Abnormal computed tomography of abdomen and pelvis: ? DS: Discharge Diagnosis Discharge Diagnosis (1) Hypokalemia: Code(s): E87.6 - Hypokalemia Status: Acute (2) Chronic indwelling Fitzpatrick catheter: Code(s): Z97.8 - Presence of other specified devices Status: Acute (3) Constipation: Qualifiers: Constipation type: unspecified constipation type Qualified Code(s): K59.00 - Constipation, unspecified Code(s): K59.00 - Constipation, unspecified Status: Acute (4) Acute hypokalemia: Code(s): E87.6 - Hypokalemia Status: Acute (5) Acute hyponatremia: Code(s): E87.1 - Hypo-osmolality and hyponatremia Status: Acute (6) Acute hyperglycemia: Code(s): R73.9 - Hyperglycemia, unspecified Status: Acute (7) Constipation due to neurogenic bowel: Code(s): K59.00 - Constipation, unspecified; K59.2 - Neurogenic bowel, not elsewhere classified Status: Acute (8) Urinary retention: Code(s): R33.9 - Retention of urine, unspecified Status: Acute (9) DKA (diabetic ketoacidosis): Code(s): E11.10 - Type 2 diabetes mellitus with ketoacidosis without coma Status: Acute (10) Quadriplegia, C5-C7 incomplete: Code(s): G82.54 - Quadriplegia, C5-C7 incomplete Status: Acute (11) Anticoagulant long-term use: Code(s): Z79.01 - half-way (current) use of anticoagulants Status: Acute (12) Sacral osteomyelitis: Code(s): M46.28 - Osteomyelitis of vertebra, sacral and sacrococcygeal region Status: Acute (13) Abscess of sacrum: Code(s): M46.28 - Osteomyelitis of vertebra, sacral and sacrococcygeal region Status: Acute (14) Decubitus skin ulcer: Code(s): L89.90 - Pressure ulcer of unspecified site, unspecified stage Status: Acute DS: Summary Hospital Course Reason for hospitalization: Abdominal pain, nausea vomiting Hospital Course: 31-year-old quadriplegic sent to the emergency room from [facility] a full-time resident for chief complaint of nausea vomiting diarrhea. He is found to have new onset diabetes in diabetic ketoacidosis requiring treatment in the intensive care unit setting. Hemoglobin A1c is 11.6 Imaging was performed in the ER and patient was found to have Sacrococcygeal osteomyelitis with phlegmon versus small early abscess. follow-up MRI imaging confirmed chronic sacrococcygeal osteomyelitis with small abscess formation. Surgery was consulted and recommended conservative treatment. Patient is discharged in stable condition back to his [facility] on [facility] week IV antibiotic course of ertapenem and vancomycin With recommendation for outpatient follow-up with his primary care physician, Endocrinology, and Surgery. 12/19/21 Patient presents with n/v and abdominal pain. Glucose 438 with serum bicarb <5 (AG 26). Patient has new onset diabetes mellitus.? A1c 11.5.? Patient received 3 L of isotonic fluids in the ER. Patient was started on DKA protocol and admitted to ICU. Appreciate house supervisor input.? Discussed. Potassium 2.5 on admission. Not on diuretics on admission. Potassium was replaced with repeat showing normal potassium level. With treatment of the DKA, potassium has dropped again with repeat replacement ordered. Mag level normal. Follow and replace as needed. Patient started on Colace and daily Dulcolax.? He did receive an enema in the ER. He is having BMs and abd soft. Continue current bowel regiment and monitor Patient had an episode of hematuria but urine clear now. UA does showing 1+ blood with >[address] scan showing urine retention so Fitzpatrick catheter was placed.? Pat
[2021-12-25 12:21] LABS: Glucose Point of Care 252 mg/dl (65-105)
[2021-12-25] MEDS: INSULIN ASPART (*BKC) 100 UNITS/ML SUB-Q ×2 (13:00→17:12)
[2021-12-25] MEDS: CENTRAL LINE FLUSH 10 ML IV PUSH (13:04)
[2021-12-25 14:00] VITALS: BP 112/70; PULSE 94; RESP 18; TEMP 36.4; O2SAT 98
[2021-12-25 17:12] LABS: Glucose Point of Care 301 mg/dl (65-105)
[2021-12-25] MEDS: WARFARIN (*PBKC) 4 MG TABLET PO (17:13)
[2021-12-25] MEDS: WARFARIN (*PBKC) 2.5 MG TABLET PO (17:13)
[2022-01-05 04:12] LABS: Islet Cell Antibody Screen NEGATIVE (NEGATIVE)
== END 2021-12-25 18:15 | DRG 420 ==
LOC: ANHED 23:55 → ANHICU 12-19 02:46 → ANH3MEDSUR 12-20 10:12
PROVIDERS: Internal Medicine; Admitting Provider Internal Medicine; Emergency Provider Emergency Medicine; Visit Provider Hospitalist
DX: E11.10 Type 2 diabetes mellitus with ketoacidosis without coma (principal); E87.1 Hypo-osmolality and hyponatremia; E87.6 Hypokalemia; M46.28 Osteomyelitis of vertebra, sacral and sacrococcygeal region; L89.322 Pressure ulcer of left buttock, stage 2; N31.9 Neuromuscular dysfunction of bladder, unspecified; K59.2 Neurogenic bowel, not elsewhere classified; K59.00 Constipation, unspecified; K70.30 Alcoholic cirrhosis of liver without ascites; G82.54 Quadriplegia, C5-C7 incomplete; R33.9 Retention of urine, unspecified; S14.155S Other incomplete lesion at C5 level of cervical spinal cord, sequela; V05.00 Pedestrian on foot injured in collision with railway train or railway vehicle in nontraffic accident; Z79.01 Long term (current) use of anticoagulants; Z87.828 Personal history of other (healed) physical injury and trauma
CPT/HCPCS: 36415; 51701; 72197; 74177; 80048; 80053; 80202; 81001; 82010; 82948; 83036; 83605; 83690; 83735; 84100; 84681; 85025; 85610; 85652; 86140; 86341; 87040; 87086; 87088; 93005; 96361; 96365; 96366; 96367; 96368; 96374; 99285; A9270; A9577; C1751; G0378; G0379; J0692; J0743; J1170; J1815; J2405; J3370; J3480; J7030; J7040; J7050; Q9967

== ENCOUNTER 2022-05-03 08:28 | Outpatient (CLI) | payer OTHER, SELFPAY ==
--- NOTE | ~2022-05-03 | CT_ITS ---
EXAMINATION: CT abdomen pelvis w con DATE: 05/03/2022 09:25 INDICATION: Acute osteomyelitis TECHNIQUE: Computed tomography (CT) of the abdomen and pelvis was performed with 100 mL Omnipaque-350 intravenous contrast. Automated exposure control and iterative reconstruction technique were employe d. The dose-length product was 576.22 mGy-cm. COMPARISON: 12/18/2021 and 02/11/2021 FINDINGS: Discoid atelectasis at the bilateral posterior sulci. Heart size is normal. No pericardial or pleural effusion. There is atrophy of the posterior segments of the right hepatic lobe and hypertrophy of th e lateral segments of the left hepatic lobe along with nodular contour to the liver in the right hepa tic lobe which is consistent with cirrhosis. 11 mm hypodense lesion with poorly defined margins at th e junction of segments 4A and 4B which can be seen on CT from one year prior dated 02/11/2021. Gallbla dder, spleen, pancreas, bilateral adrenal glands and kidneys are normal. Bowels including the appendi x are normal. Bladder is normal. No free intraperitoneal gas or fluid. No pathologically enlarged abd ominal or pelvic lymphadenopathy. Again seen is chronic stranding in the presacral fat. Chronic erosi ons of the coccyx and caudal sacrum with small anteriorly displaced bone fragment consistent with chr onic osteomyelitis. No interval change in the contour of the bone to suggest progression of the chron ic osteomyelitis. The small region of lower attenuation phlegmonous change surrounding the appendix d istal tip of the remaining bone has resolved with residual small bands of soft tissue density likely scarring which extends to the overlying skin surface. Mild thoracolumbar spondylosis. IMPRESSION: 1. No interval progression of chronic sacrococcygeal osteomyelitis with resolution of prior small lauren unt of surrounding phlegmonous change. 2. Cirrhosis. Reviewed, dictated and finalized at location L. COURSE LABORER IMPRESSION: 1. No interval progression of chronic sacrococcygeal osteomyelitis with resolut ion of prior small amount of surrounding phlegmonous change. 2. Cirrhosis.
[2022-05-03 09:13] LABS: Estimated Glomerular Filt Rate > 60
== END 2022-05-03 08:29 | disposition home or self-care (01) ==
DX: M86.18 Other acute osteomyelitis, other site (principal); K74.60 Unspecified cirrhosis of liver
CPT/HCPCS: 74177; Q9967

== ENCOUNTER 2022-11-06 19:45 | Emergency (ER) | payer OTHER, SELFPAY ==
--- NOTE | ~2022-11-06 | CT_ITS ---
EXAMINATION: CT brain wo con DATE: 11/06/2022 20:14 INDICATION: head injury . TECHNIQUE: Computed tomography (CT) of the head was performed without intravenous contrast. The mA wa s adjusted according to patient size. Iterative reconstruction technique was employed. The dose-lengt h product was 605.33 mGy-cm. COMPARISON: 02/11/2021. FINDINGS: No acute intracranial hemorrhage or extra-axial fluid collection. No hydrocephalus, mass, or herniation. No acute ischemic infarct. Unremarkable dural venous sinus attenuation. No acute osseous abnormality. Air-fluid level and mucosal thickening in the right maxillary sinus, mild mucosal thickening in the e thmoid air cells and left maxillary sinus, the remaining aerated spaces are clear. IMPRESSION: No acute intracranial process. Left maxillary sinus findings may represent acute sinusitis or mucosal hemorrhage given the history of trauma. Reviewed, dictated and finalized at [facility]. IMPRESSION: No acute intracranial process. Left maxillary sinus findings may represent acut e sinusitis or mucosal hemorrhage given the history of trauma.
[2022-11-06 19:52] VITALS: BP 131/72; PULSE 78; RESP 17; TEMP 36.4; O2SAT 98
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
[2022-11-06 21:35] VITALS: BP 121/74; PULSE 80; RESP 17; O2SAT 96
[2022-11-06 21:36] VITALS: BP 121/74; PULSE 80; RESP 16; O2SAT 96
== END 2022-11-06 22:40 ==
PROVIDERS: Emergency Provider Emergency Medicine; PCP Hospitalist
DX: S09.90XA Unspecified injury of head, initial encounter (principal); Z79.01 Long term (current) use of anticoagulants; W50.0XXA Accidental hit or strike by another person, initial encounter; Y92.129 Unspecified place in nursing home as the place of occurrence of the external cause
CPT/HCPCS: 70450; 99284

== ENCOUNTER 2022-12-11 12:57 | Outpatient (CLI) | payer OTHER, SELFPAY ==
[2022-12-11 13:33] LABS: INR 2.2; Prothrombin Time 25.6 Seconds (11.1-14.7)
== END 2022-12-11 12:58 | disposition home or self-care (01) ==
PROVIDERS: PCP Hospitalist
DX: Z79.01 Long term (current) use of anticoagulants (principal)
CPT/HCPCS: 36415; 85610